=== PATIENT | male | born 1960 | race Caucasian/White ===

== ENCOUNTER 2021-02-23 22:51 | Emergency (ER) | payer MEDICAID, OTHER ==
[~2021-02-23] VITALS: Ht 165.1 cm; Wt 77.0 kg
[2021-02-23] MEDS ORDERED: BACITRACIN ZINC OINT UDPKT TOP ONE (23:15)
[2021-02-23] MEDS ORDERED: KETOROLAC 30MG/ML VIAL IM ONE (23:15)
[2021-02-23] MEDS ORDERED: LIDOCAINE HCL/PF 1% 10 MG/ML 5ML VIAL INFIL ONE (23:15)
[2021-02-23] MEDS ORDERED: HYDROCODONE/ACETAMINOPHEN 5/325MG TABLET PO ONE (23:15)
[2021-02-23 23:35] VITALS: BP 168/88
[2021-02-24] MEDS ORDERED: CEPH500T PO (01:11)
[2021-02-24] MEDS ORDERED: IBUP-2029 PO (01:11)
[2021-02-24] MEDS ORDERED: SULF1TAB48 PO (01:11)
== END 2021-02-24 01:50 | disposition home or self-care (01) ==
LOC: ER 23:08
DX: L02.811 Cutaneous abscess of head [any part, except face] (principal); E11.9 Type 2 diabetes mellitus without complications; I10 Essential (primary) hypertension; Z79.899 Other long term (current) drug therapy
CPT/HCPCS: 96372; 99283; J1885; J3490

== ENCOUNTER 2022-06-20 14:55 | Inpatient (IN) | payer MEDICAID, MEDICARE, OTHER ==
[~2022-06-20] VITALS: Ht 165.1 cm; Wt 83.2 kg
[~2022-06-20 14:55] MED LIST: CEPH500T PO; IBUP-2029 PO; SULF1TAB48 PO
[2022-06-20] MEDS ORDERED: MORPHINE SULFATE 4 MG/ML CPJ (NOT FOR IM USE) IV STA (16:09)
[2022-06-20] MEDS ORDERED: ASPIRIN 325MG EC TABLET PO ONE (16:15)
[2022-06-20 17:07] LABS: BASOPHILS % 0.7 % (0.0-2.0); EOSINOPHILS % 1.3 % (0.0-5.0); HEMATOCRIT. 39.6 % (42.0-52.0); HEMOGLOBIN. 13.5 g/dL (14.0-18.0); LYMPHOCYTES % 15.1 % (20.0-50.0); MEAN CORPUSCULAR HEMOGLOBIN 31.1 pg (28.0-32.0); MEAN CORPUSCULAR VOLUME 91.6 fL (80.0-94.0); MEAN PLATELET VOLUME 8.9 fl (7.4-10.4); MONOCYTES % 6.6 % (2.0-8.0); NEUTROPHILS % 76.3 % (40.0-76.0); PLATELET 293 x1000/uL (130-400); RED BLOOD CELL COUNT 4.32 mill/uL (4.7-6.1)
[2022-06-20 17:16] LABS: CHLORIDE 107 mEq/L (98-107)
[2022-06-20 17:25] LABS: CLARITY URINE CLEAR (CLEAR); COLOR URINE YELLOW (YELLOW); KETONES URINE NEGATIVE (NEGATIVE); LEUKOCYTE ESTERASE URINE NEGATIVE (NEGATIVE); NITRITE URINE NEGATIVE (NEGATIVE); OCCULT BLOOD URINE 2+ (NEGATIVE); PH URINE 5.5 (4.5-8.0); PROTEIN URINE 3+ (NEGATIVE); SPECIFIC GRAVITY URINE 1.019 (1.005-1.030); UROBILINOGEN URINE 0.2 E.U./dL (0.2-1.0)
[2022-06-20] MEDS ORDERED: ENOXAPARIN 80MG/0.8ML SYR SUBCUT ONE (20:15)
[2022-06-21] MEDS: IPRATROPIUM/ALBUTEROL 0.5-3(2.5)MG/3ML NEB HHN SCH (01:20)
[2022-06-21 05:21] VITALS: BP 158/93
[2022-06-21] MEDS ORDERED: DEXTROSE 50% WATER 50ML SYRINGE IV PRN (06:00)
[2022-06-21] MEDS: BLOOD SUGAR DIAGNOSTIC STRIP TEST SCH ×4 (06:00→22:16)
[2022-06-21] MEDS ORDERED: ONDANSETRON HCL 4MG/2ML INJ IV PRN (06:15)
[2022-06-21] MEDS ORDERED: PNEUMOCOCCAL 23-VAL P-SAC VAC 0.5 ML IM ONE (07:00)
[2022-06-21] MEDS ORDERED: INFLUENZA VACCINE 05/PF 0.5 ML SYRINGE IM ONE (07:00)
[2022-06-21] MEDS ORDERED: LOSARTAN POTASSIUM 50 MG TABLET PO NR (07:15)
[2022-06-21 08:00] VITALS: BP 160/85
[2022-06-21] MEDS: INSULIN LISPRO 100 UNITS/ML SUBCUT SCH ×4 (08:10→22:16)
[2022-06-21] MEDS ORDERED: FUROSEMIDE 40MG/4ML VIAL IVP NR (09:30)
[2022-06-21 12:00] VITALS: BP 134/68
[2022-06-21] MEDS: ENOXAPARIN 100MG/ML SYR SUBCUT SCH (12:03)
[2022-06-21 15:13] LABS: INR 1.1; PROTHROMBIN TIME 11.7 sec (9.6-11.0)
[2022-06-21 16:00] VITALS: BP 131/75
[2022-06-21] MEDS: FUROSEMIDE 40MG/4ML VIAL IVP SCH (18:53)
[2022-06-21 20:00] VITALS: BP 143/71
[2022-06-22] VITALS (7 sets, daily range): BP systolic 126–157; BP diastolic 73–87
[2022-06-22] MEDS: ENOXAPARIN 100MG/ML SYR SUBCUT SCH (00:53)
[2022-06-22] MEDS: IPRATROPIUM/ALBUTEROL 0.5-3(2.5)MG/3ML NEB HHN SCH ×2 (04:20→15:25)
[2022-06-22] MEDS: FUROSEMIDE 40MG/4ML VIAL IVP SCH ×3 (05:09→17:48)
[2022-06-22] MEDS ORDERED: IODIXANOL 320MG/ML 100 ML BOTTLE IV ONE ×2 (07:41→10:17)
[2022-06-22] MEDS ORDERED: VERAPAMIL HCL 2.5 MG/1 ML 2ML VIAL IV ONE (07:43)
[2022-06-22] MEDS ORDERED: HEPARIN 1000 UNITS/ML 10ML ONE (07:44)
[2022-06-22] MEDS ORDERED: LIDOCAINE HCL/PF 1% 10 MG/ML 5ML VIAL ONE (07:54)
[2022-06-22] MEDS: INSULIN LISPRO 100 UNITS/ML SUBCUT SCH ×4 (08:10→21:51)
[2022-06-22] MEDS: BLOOD SUGAR DIAGNOSTIC STRIP TEST SCH ×4 (08:29→21:51)
[2022-06-22] MEDS: ASPIRIN 81MG TABLET PO SCH (09:00)
[2022-06-22] MEDS ORDERED: MIDAZOLAM HCL 2 MG/2 ML VIAL ONE (09:19)
[2022-06-22] MEDS ORDERED: FENTANYL CITRATE/PF 50MCG/ML 2ML VIAL ONE (09:19)
[2022-06-22] MEDS ORDERED: DIPHENHYDRAMINE 50MG/ML VIAL ONE (09:43)
[2022-06-22] MEDS ORDERED: CLOPIDOGREL 75MG TABLET ONE (10:31)
[2022-06-22] MEDS ORDERED: ATROPINE SULFATE 1MG/10ML SYR IV PRN (10:45)
[2022-06-22] MEDS: SPIRONOLACTONE 25MG TABLET PO SCH (12:11)
[2022-06-22] MEDS: HYDRALAZINE 20MG/ML VIAL IV PRN (12:11)
[2022-06-22 15:52] LABS: CHLORIDE 103 mEq/L (98-107)
[2022-06-22] MEDS: ACETAMINOPHEN 325MG TABLET PO PRN (17:47)
[2022-06-22] MEDS: CARVEDILOL 6.25 MG TABLET PO SCH ×2 (17:47→21:50)
[2022-06-22] MEDS ORDERED: TEMAZEPAM 15MG CAPSULE PO NR (21:30)
[2022-06-23 04:00] VITALS: BP 154/94
[2022-06-23 06:14] LABS: BASOPHILS % 0.7 % (0.0-2.0); EOSINOPHILS % 3.1 % (0.0-5.0); HEMATOCRIT. 39.4 % (42.0-52.0); HEMOGLOBIN. 13.3 g/dL (14.0-18.0); MEAN CORPUSCULAR HEMOGLOBIN 31.1 pg (28.0-32.0); MEAN CORPUSCULAR VOLUME 92.4 fL (80.0-94.0); MEAN PLATELET VOLUME 8.8 fl (7.4-10.4); MONOCYTES % 8.6 % (2.0-8.0); NEUTROPHILS % 70.6 % (40.0-76.0); PLATELET 305 x1000/uL (130-400); RED BLOOD CELL COUNT 4.27 mill/uL (4.7-6.1); RED CELL DISTRIBUTION WIDTH 12.9 % (11.6-14.6)
[2022-06-23] MEDS: FUROSEMIDE 40MG/4ML VIAL IVP SCH (06:26)
[2022-06-23] MEDS: BLOOD SUGAR DIAGNOSTIC STRIP TEST SCH ×4 (06:42→21:00)
[2022-06-23 06:50] LABS: CHLORIDE 102 mEq/L (98-107)
[2022-06-23] MEDS: IPRATROPIUM/ALBUTEROL 0.5-3(2.5)MG/3ML NEB HHN SCH ×4 (07:54→20:38)
[2022-06-23 08:00] VITALS: BP 138/87
[2022-06-23] MEDS: ASPIRIN 81MG TABLET PO SCH (09:00)
[2022-06-23] MEDS: SPIRONOLACTONE 25MG TABLET PO SCH (09:20)
[2022-06-23] MEDS: LOSARTAN POTASSIUM 25 MG TABLET PO SCH (09:20)
[2022-06-23] MEDS: CARVEDILOL 6.25 MG TABLET PO SCH ×2 (09:21→23:29)
[2022-06-23] MEDS: CLOPIDOGREL 75MG TABLET PO SCH (10:51)
[2022-06-23] MEDS: INSULIN LISPRO 100 UNITS/ML SUBCUT SCH ×4 (10:53→21:00)
[2022-06-23 12:00] VITALS: BP 177/106
[2022-06-23] MEDS: HYDRALAZINE 20MG/ML VIAL IV PRN (14:30)
[2022-06-23 15:00] VITALS: BP 127/56
[2022-06-23] MEDS ORDERED: HYDRALAZINE 20MG/ML VIAL IV PRN (15:00)
[2022-06-23] MEDS: HYDRALAZINE HCL 25MG TABLET PO SCH ×2 (16:11→23:22)
[2022-06-23] MEDS ORDERED: OXYMETAZOLINE HCL NASAL SPRAY 15ML BOTHNSTRLS PRN (17:00)
[2022-06-23 20:00] VITALS: BP 132/68
[2022-06-23] MEDS ORDERED: ATORVASTATIN CALCIUM 40MG TABLET PO SCH (21:00)
[2022-06-23] MEDS: ACETAMINOPHEN 325MG TABLET PO PRN (23:24)
[2022-06-24] MEDS: IPRATROPIUM/ALBUTEROL 0.5-3(2.5)MG/3ML NEB HHN SCH ×5 (00:14→16:00)
[2022-06-24] MEDS: HYDRALAZINE HCL 25MG TABLET PO SCH ×2 (06:00→16:14)
[2022-06-24] MEDS: BLOOD SUGAR DIAGNOSTIC STRIP TEST SCH ×3 (07:03→16:10)
[2022-06-24 08:00] VITALS: BP 138/62
[2022-06-24] MEDS ORDERED: FUROSEMIDE 40MG TABLET PO SCH (09:00)
[2022-06-24] MEDS: ASPIRIN 81MG TABLET PO SCH (09:46)
[2022-06-24] MEDS: LOSARTAN POTASSIUM 25 MG TABLET PO SCH (09:56)
[2022-06-24] MEDS: CARVEDILOL 6.25 MG TABLET PO SCH (09:56)
[2022-06-24] MEDS: CLOPIDOGREL 75MG TABLET PO SCH (09:56)
[2022-06-24] MEDS: SPIRONOLACTONE 25MG TABLET PO SCH (09:57)
[2022-06-24 12:00] VITALS: BP 138/88
[2022-06-24] MEDS: INSULIN LISPRO 100 UNITS/ML SUBCUT SCH ×2 (12:59→16:09)
[2022-06-24] MEDS ORDERED: CLOP75TA15 PO (15:16)
[2022-06-24] MEDS ORDERED: FURO40TA5 PO (15:16)
[2022-06-24] MEDS ORDERED: SPIR25TA PO (15:16)
[2022-06-24] MEDS ORDERED: LOSA25TA3 PO (15:16)
[2022-06-24] MEDS ORDERED: LIP40 PO (15:16)
[2022-06-24] MEDS ORDERED: HYDR-4134 PO (15:16)
[2022-06-24] MEDS ORDERED: COR6 PO (15:16)
[2022-06-24 15:25] VITALS: BP 136/76
[2022-06-24 16:00] VITALS: BP 135/82
[2022-06-24 16:19] LABS: BASOPHILS % 0.6 % (0.0-2.0); EOSINOPHILS % 3.2 % (0.0-5.0); HEMATOCRIT. 41.7 % (42.0-52.0); HEMOGLOBIN. 14.1 g/dL (14.0-18.0); MEAN CORPUSCULAR HEMOGLOBIN 31.2 pg (28.0-32.0); MEAN CORPUSCULAR VOLUME 92.3 fL (80.0-94.0); MEAN PLATELET VOLUME 8.5 fl (7.4-10.4); MONOCYTES % 10.8 % (2.0-8.0); NEUTROPHILS % 60.4 % (40.0-76.0); PLATELET 413 x1000/uL (130-400); RED BLOOD CELL COUNT 4.52 mill/uL (4.7-6.1); RED CELL DISTRIBUTION WIDTH 13.2 % (11.6-14.6)
== END 2022-06-24 19:48 | disposition home or self-care (01) | DRG 174 ==
LOC: ER 14:55 → MICUSO 20:24 → EDBEDREQSVC 20:39 → EDBEDREQTM 20:39 → EDBEDREQ 20:39 → 7WST 06-21 04:39 → 3WST 06-22 11:25
PROVIDERS: ADMIT Internal Medicine; ATTEND Internal Medicine
PROC: 027034Z Dilation of Coronary Artery, One Artery with Drug-eluting Intraluminal Device, Percutaneous Approach (ICD-10-PCS; principal; 2022-06-22)
PROC: 4A023N7 Measurement of Cardiac Sampling and Pressure, Left Heart, Percutaneous Approach (ICD-10-PCS; 2022-06-22)
PROC: B211YZZ Fluoroscopy of Multiple Coronary Arteries using Other Contrast (ICD-10-PCS; 2022-06-22)
PROC: 4A033BC Measurement of Arterial Pressure, Coronary, Percutaneous Approach (ICD-10-PCS; 2022-06-22)
DX: I21.4 Non-ST elevation (NSTEMI) myocardial infarction (principal); I50.21 Acute systolic (congestive) heart failure; E44.1 Mild protein-calorie malnutrition; I11.0 Hypertensive heart disease with heart failure; E11.9 Type 2 diabetes mellitus without complications; I16.0 Hypertensive urgency; Z20.822 Contact with and (suspected) exposure to COVID-19; E78.5 Hyperlipidemia, unspecified; R04.0 Epistaxis; Z79.899 Other long term (current) drug therapy
CPT/HCPCS: 36415; 71045; 74176; 76705; 80048; 80053; 80061; 81003; 82962; 83036; 83605; 83880; 84484; 85025; 85347; 87426; 90686; 92928; 93005; 93306; 93458; 93571; 94640; 99291; C1769; C1874; C1887; C1893; C9803; J0360; J1200; J1644; J1650; J1815; J1940; J2250; J2270; J2405; J3010; J3490; Q9967

== ENCOUNTER 2022-09-03 17:47 | Emergency (ER) | payer MEDICAID, OTHER ==
[~2022-09-03] VITALS: Ht 165.1 cm; Wt 80.0 kg
[~2022-09-03 17:47] MED LIST changes: -CEPH500T PO; +CLOP75TA15 PO; +COR6 PO; +FURO40TA5 PO; +HYDR-4134 PO; +LIP40 PO; +LOSA25TA3 PO; +SPIR25TA PO; -SULF1TAB48 PO
[2022-09-03 20:24] LABS: BASOPHILS % 0.4 % (0.0-2.0); EOSINOPHILS % 0.6 % (0.0-5.0); HEMATOCRIT. 33.3 % (42.0-52.0); HEMOGLOBIN. 11.1 g/dL (14.0-18.0); LYMPHOCYTES % 8.4 % (20.0-50.0); MEAN CORPUSCULAR HEMOGLOBIN 30.1 pg (28.0-32.0); MEAN CORPUSCULAR VOLUME 90.2 fL (80.0-94.0); MEAN PLATELET VOLUME 8.7 fl (7.4-10.4); MONOCYTES % 7.8 % (2.0-8.0); NEUTROPHILS % 82.8 % (40.0-76.0); PLATELET 361 x1000/uL (130-400); RED BLOOD CELL COUNT 3.69 mill/uL (4.7-6.1); RED CELL DISTRIBUTION WIDTH 13.5 % (11.6-14.6)
[2022-09-03 20:28] LABS: CHLORIDE 94 mEq/L (98-107)
[2022-09-03 20:31] LABS: INR 1.1; PROTHROMBIN TIME 11.7 sec (9.6-11.0)
[2022-09-03] MEDS ORDERED: ASPIRIN 325MG EC TABLET PO ONE (21:15)
[2022-09-03] MEDS ORDERED: INSULIN REGULAR (HUMULIN R) 300UNITS/3ML VIAL SUBCUT ONE (21:15)
[2022-09-03] MEDS ORDERED: ENOXAPARIN 80MG/0.8ML SYR SUBCUT ONE (23:00)
[2022-09-04 11:30] VITALS: BP 124/69
== END 2022-09-04 12:38 | disposition short-term general hospital (02) ==
LOC: ER 17:47 → EDBEDREQ 09-04 06:08 → EDBEDREQTM 09-04 06:08 → EDBEDREQDT 09-04 06:08 → CANBEDREQ 09-04 10:57 → ER 09-04 12:38
DX: I21.4 Non-ST elevation (NSTEMI) myocardial infarction (principal); E11.65 Type 2 diabetes mellitus with hyperglycemia; I44.7 Left bundle-branch block, unspecified; E78.00 Pure hypercholesterolemia, unspecified; Z95.5 Presence of coronary angioplasty implant and graft; I25.2 Old myocardial infarction; Z79.4 Long term (current) use of insulin; Z20.822 Contact with and (suspected) exposure to COVID-19
CPT/HCPCS: 36415; 71045; 80053; 82962; 83880; 84484; 85025; 85610; 87426; 93005; 96372; 99291; C9803; J1650; J1815; Z7610

== ENCOUNTER 2023-01-22 17:17 | Emergency (ER) | payer MEDICAID, OTHER ==
[~2023-01-22] VITALS: Ht 172.7 cm; Wt 82.0 kg
[2023-01-22 17:23] VITALS: O2SAT 100
[2023-01-22 21:58] LABS: BASOPHILS % 0.6 % (0.0-2.0); EOSINOPHILS % 1.7 % (0.0-5.0); HEMATOCRIT. 38.9 % (42.0-52.0); HEMOGLOBIN. 12.3 g/dL (14.0-18.0); MEAN CORPUSCULAR HEMOGLOBIN 28.3 pg (28.0-32.0); MEAN CORPUSCULAR VOLUME 89.1 fL (80.0-94.0); MEAN PLATELET VOLUME 8.3 fl (7.4-10.4); MONOCYTES % 7.5 % (2.0-8.0); NEUTROPHILS % 74.2 % (40.0-76.0); PLATELET 277 x1000/uL (130-400); RED BLOOD CELL COUNT 4.36 mill/uL (4.7-6.1); RED CELL DISTRIBUTION WIDTH 15.1 % (11.6-14.6)
[2023-01-22 22:06] LABS: CHLORIDE 107 mEq/L (98-107)
[2023-01-22 22:08] LABS: INR 1.1; PROTHROMBIN TIME 11.9 sec (9.6-11.0)
[2023-01-22] MEDS ORDERED: MORPHINE SULFATE 4 MG/ML CPJ (NOT FOR IM USE) IV NR (23:03)
[2023-01-22] MEDS ORDERED: ONDANSETRON HCL 4MG/2ML INJ IV NR (23:03)
[2023-01-23] MEDS ORDERED: ALD50 MT (04:57)
[2023-01-23] MEDS ORDERED: FURO-151 MT (04:57)
[2023-01-23 05:20] VITALS: BP 138/82; PULSE 92; RESP 26; TEMP 98.1
== END 2023-01-23 05:41 | disposition home or self-care (01) ==
LOC: ER 17:17
DX: R10.30 Lower abdominal pain, unspecified (principal); J90 Pleural effusion, not elsewhere classified; K74.60 Unspecified cirrhosis of liver; E11.9 Type 2 diabetes mellitus without complications; E78.00 Pure hypercholesterolemia, unspecified; I10 Essential (primary) hypertension; I25.2 Old myocardial infarction
CPT/HCPCS: 80053; 83880; 83605; 83690; 85025; 85610; 84484; 36415; 71045; 93005; 96374; 96375; 99285; 82962; 74176; Z7610; J2405; J2270